=== PATIENT | female | born 1970 | race Caucasian/White ===

== ENCOUNTER 2019-02-17 19:09 | Emergency (ER) | payer BC ==
[~2019-02-17] VITALS: Ht 175.3 cm; Wt 90.9 kg
[2019-02-17] MEDS ORDERED: KETOROLAC 30 MG/ML VIAL (J1885) IV ONE (19:45)
[2019-02-17] MEDS ORDERED: CYCL5TAB PO (21:46)
[2019-02-17] MEDS ORDERED: CYCLOBENZAPRINE 5MG TABLET PO ONE (22:00)
[2019-02-17 22:01] VITALS: BP 138/83
--- NOTE | 2019-02-18 15:06 | REP ---
PELVIS AND LEFT HIP: AP view of the pelvis and AP and frogleg views of the left hip are performed and demonstrate no fracture, dislocation, or intrinsic bone disease. IMPRESSION: No acute fracture or dislocation. Electronically Signed by Nash Gongora MD 02/18/2019 04:41 P
== END 2019-02-17 22:05 | disposition home or self-care (01) ==
LOC: M ED 19:09
DX: S76.912A Strain of unspecified muscles, fascia and tendons at thigh level, left thigh, initial encounter (principal); W01.0XXA Fall on same level from slipping, tripping and stumbling without subsequent striking against object, initial encounter; Y92.511 Restaurant or cafe as the place of occurrence of the external cause; Z88.1 Allergy status to other antibiotic agents; Z88.2 Allergy status to sulfonamides; F17.210 Nicotine dependence, cigarettes, uncomplicated
CPT/HCPCS: 73502; 96374; 99284; J1885